=== PATIENT | female | born 1960 | race Caucasian/White ===

== ENCOUNTER 2017-06-30 15:26 | Outpatient (CLI) | payer OTHER ==
[~2017-06-30 15:26] MED LIST: DOLOGESIC 500-1 EACH PO; LEVSIN/SL0.125 MG SL; PNEU16DI2; PROGESTERONE100 MG; SYNTHROID50 MCG PO
== END 2017-06-30 17:00 | disposition home or self-care (01) ==
LOC: MRI 15:26
DX: M50.10 Cervical disc disorder with radiculopathy, unspecified cervical region (principal); M48.02 Spinal stenosis, cervical region
CPT/HCPCS: 72141

== ENCOUNTER 2017-09-25 10:34 | Outpatient (CLI) | payer OTHER | END 2017-09-25 17:00 | disposition home or self-care (01) | LOC: TOM 10:34 | DX: I26.99 Other pulmonary embolism without acute cor pulmonale (principal) ==

== ENCOUNTER 2017-09-30 12:21 | Outpatient (CLI) | payer OTHER | END 2017-09-30 12:26 | disposition home or self-care (01) | LOC: SONOGRAMA 12:21 | DX: E04.1 Nontoxic single thyroid nodule (principal) ==

== ENCOUNTER → 2020-09-26 | Outpatient (CLI) | payer OTHER | END | disposition home or self-care (01) | LOC: TOM 11:29 | DX: G93.89 Other specified disorders of brain (principal); G44.89 Other headache syndrome | CPT/HCPCS: 70551 ==

== ENCOUNTER 2021-01-22 08:22 | Outpatient (CLI) | payer OTHER | END 2021-01-22 08:27 | disposition home or self-care (01) | LOC: RAD 08:22 | PROVIDERS: ATTEND Dermatology | DX: M25.571 Pain in right ankle and joints of right foot (principal) ==

== ENCOUNTER 2021-02-13 13:15 | Outpatient (CLI) | payer OTHER | END 2021-02-13 13:20 | disposition home or self-care (01) | LOC: TOM 13:15 | PROVIDERS: ATTEND Family Medicine | DX: N20.0 Calculus of kidney (principal) ==

== ENCOUNTER 2021-02-20 08:00 | Outpatient (CLI) | payer OTHER | END 2021-02-20 08:30 | disposition home or self-care (01) | LOC: PPH VACUNA 08:00 | PROVIDERS: ATTEND Emergency Medicine Pediatric Emergency Medicine | DX: Z23 Encounter for immunization (principal) ==

== ENCOUNTER 2021-03-13 10:11 | Outpatient (CLI) | payer OTHER | END 2021-03-13 10:12 | disposition home or self-care (01) | LOC: RAD 10:11 | PROVIDERS: ATTEND Urology | DX: M95.5 Acquired deformity of pelvis (principal); R31.29 Other microscopic hematuria ==

== ENCOUNTER 2021-06-15 12:04 | Outpatient (CLI) | payer OTHER | END 2021-06-15 12:30 | disposition home or self-care (01) | LOC: MRI 12:04 | PROVIDERS: ATTEND Family Medicine | DX: C56.9 Malignant neoplasm of unspecified ovary (principal) | CPT/HCPCS: 72195 ==

== ENCOUNTER 2022-08-07 14:33 | Outpatient (CLI) | payer OTHER | END 2022-08-07 15:00 | disposition home or self-care (01) | LOC: RAD 14:33 | PROVIDERS: ATTEND Family Medicine | DX: M25.511 Pain in right shoulder (principal); M25.551 Pain in right hip ==

== ENCOUNTER 2022-08-13 07:50 | Outpatient (CLI) | payer OTHER | END 2022-08-13 08:15 | disposition home or self-care (01) | LOC: SONOGRAMA 07:50 | PROVIDERS: ATTEND Family Medicine | DX: M25.551 Pain in right hip (principal); M25.511 Pain in right shoulder ==

== ENCOUNTER 2022-08-13 10:32 | Outpatient (CLI) | payer OTHER | END 2022-08-13 10:36 | disposition home or self-care (01) | LOC: NUCLEAR 10:32 | PROVIDERS: ATTEND Family Medicine | DX: M81.0 Age-related osteoporosis without current pathological fracture (principal) ==

== ENCOUNTER → 2022-08-28 | Outpatient (CLI) | payer OTHER | END | disposition home or self-care (01) | LOC: SONOGRAMA 08:13 | PROVIDERS: ATTEND Obstetrics & Gynecology | DX: E07.9 Disorder of thyroid, unspecified (principal); E03.9 Hypothyroidism, unspecified ==

== ENCOUNTER 2022-10-07 05:40 | Day surgery (SDC) | payer OTHER ==
[~2022-10-07] VITALS: Ht 165.1 cm; Wt 82.1 kg
[~2022-10-07 05:40] MED LIST changes: +CHILDREN'S ASPI81 MG PO; +COZAAR25 MG PO; +LIPI PO; +PROBIO PO; +SINGULAIR 10MG10 MG PO; +VITAMIN A PO
== END 2022-10-07 13:25 | disposition home or self-care (01) ==
LOC: CIR.AMB 05:40
PROVIDERS: ATTEND Obstetrics & Gynecology
DX: D27.0 Benign neoplasm of right ovary (principal); D28.2 Benign neoplasm of uterine tubes and ligaments; R10.2 Pelvic and perineal pain; Z20.822 Contact with and (suspected) exposure to COVID-19

== ENCOUNTER 2023-04-22 09:11 | Outpatient (CLI) | payer OTHER | END 2023-04-22 14:29 | disposition home or self-care (01) | LOC: TOM 09:11 | PROVIDERS: ATTEND Family Medicine | DX: A09 Infectious gastroenteritis and colitis, unspecified (principal); K57.92 Diverticulitis of intestine, part unspecified, without perforation or abscess without bleeding ==

== ENCOUNTER 2023-07-17 15:59 | Outpatient (CLI) | payer OTHER | END 2023-07-17 16:04 | disposition home or self-care (01) | LOC: TOM 15:59 | PROVIDERS: ATTEND Family Medicine | DX: R51.9 Headache, unspecified (principal); R42 Dizziness and giddiness; R53.1 Weakness ==

== ENCOUNTER → 2024-08-27 | Outpatient (CLI) | payer OTHER | END | disposition home or self-care (01) | LOC: SONOGRAMA 10:50 | PROVIDERS: ATTEND Family Medicine | DX: N20.0 Calculus of kidney (principal) ==

== ENCOUNTER 2024-12-21 07:04 | Outpatient (CLI) | payer OTHER | END 2024-12-22 17:02 | disposition home or self-care (01) | LOC: TOM 07:04 | PROVIDERS: ATTEND Internal Medicine | DX: R10.13 Epigastric pain (principal) ==

== ENCOUNTER 2025-06-08 09:09 | Outpatient (CLI) | payer OTHER | END 2025-06-08 09:11 | disposition home or self-care (01) | LOC: NUCLEAR 09:09 | PROVIDERS: ATTEND Internal Medicine Cardiovascular Disease | DX: M85.80 Other specified disorders of bone density and structure, unspecified site (principal); M81.0 Age-related osteoporosis without current pathological fracture ==